=== PATIENT | female | born 1970 | race Caucasian/White ===

== ENCOUNTER → 2016-10-25 | Outpatient (CLI) | payer OTHER | LOC: RAD 14:39 | DX: M19.90 Unspecified osteoarthritis, unspecified site (principal) ==

== ENCOUNTER → 2016-10-26 | Outpatient (CLI) | payer OTHER | LOC: RAD 08:14 | DX: M25.561 Pain in right knee (principal); S83.241A Other tear of medial meniscus, current injury, right knee, initial encounter; M25.461 Effusion, right knee; X58.XXXA Exposure to other specified factors, initial encounter ==

== ENCOUNTER → 2017-01-13 | Outpatient (CLI) | payer OTHER | LOC: LAB 11:41 | DX: I10 Essential (primary) hypertension (principal) ==

== ENCOUNTER → 2017-01-23 | Outpatient (CLI) | payer OTHER | LOC: LAB 16:10 | DX: I10 Essential (primary) hypertension (principal); R73.9 Hyperglycemia, unspecified ==

== ENCOUNTER → 2018-03-06 | Outpatient (CLI) | payer OTHER ==
[2018-03-06 08:47] LABS: BASO # 0.1 (0.02-0.10); EOS # 0.3 (0.04-0.40); EOS % 1.9 % (1.0-5.0); HEMATOCRIT 45.2 % (37.0-47.0); HEMOGLOBIN 15.1 g/dL (12.5-16.0); LYMPH# 3.3 (1.50-4.00); MEAN CELL VOLUME 94 fl (78-100); MEAN CORPUSCULAR HEMOGLOBIN 31 pg (27-31); MEAN CORPUSCULAR HGB CONC 33 g/dL (33-37); MEAN PLATELET VOLUME 9.4 fl (7.4-10.4); MONO # 1.3 (0.20-0.80); PLATELET COUNT 318 K/mm3 (130-400); RED BLOOD COUNT 4.82 M/mm3 (4.10-5.30); RED CELL DISTRIBUTION WIDTH 13.8 % (11.5-14.5); WHITE BLOOD COUNT 15.9 K/mm3 (4.8-10.8)
[2018-03-06 08:59] LABS: ALBUMIN 4.2 g/dL (3.5-5.0); BUN/CREATININE RATIO 19.6 (6.0-26.0); CALCIUM 9.3 mg/dL (8.4-10.2); POTASSIUM 3.9 mmol/L (3.6-5.0); TOTAL BILIRUBIN 0.3 mg/dL (0.2-1.3); TOTAL PROTEIN 7.8 g/dL (6.3-8.2)
[2018-03-06 09:06] LABS: NEU # 10.9 (1.40-6.50)
== END ==
LOC: LAB 08:29
PROVIDERS: Family Medicine
DX: I10 Essential (primary) hypertension (principal); D49.0 Neoplasm of unspecified behavior of digestive system; R00.2 Palpitations; L82.1 Other seborrheic keratosis; R23.2 Flushing; M25.561 Pain in right knee; F41.1 Generalized anxiety disorder; R73.01 Impaired fasting glucose

== ENCOUNTER → 2018-03-15 | Outpatient (CLI) | payer OTHER | LOC: LAB 14:38 | DX: D72.829 Elevated white blood cell count, unspecified (principal) ==

== ENCOUNTER → 2018-04-17 | Outpatient (CLI) | payer OTHER | LOC: PT 11:11 → EDSTATUS 11:30 → PT 14:52 | DX: Z01.818 Encounter for other preprocedural examination (principal) ==

== ENCOUNTER → 2018-05-01 | Outpatient (CLI) | payer OTHER ==
[~2018-05-01] VITALS: Ht 172.7 cm; Wt 84.5 kg
[~2018-05-01] MED LIST: HYDROCHLOROTHIA50 M1 PO; LISINOPRIL20 MG PO; PAROXETINE HYDR40 MG PO
[2018-05-01 11:53] LABS: BASO # 0.1 (0.02-0.10); EOS # 0.4 (0.04-0.40); EOS % 2.6 % (1.0-5.0); HEMOGLOBIN 14.5 g/dL (12.5-16.0); LYMPH# 3.1 (1.50-4.00); MEAN CELL VOLUME 95 fl (78-100); MEAN CORPUSCULAR HEMOGLOBIN 31 pg (27-31); MEAN CORPUSCULAR HGB CONC 33 g/dL (33-37); MEAN PLATELET VOLUME 9.4 fl (7.4-10.4); MONO # 0.9 (0.20-0.80); PLATELET COUNT 303 K/mm3 (130-400); RED BLOOD COUNT 4.64 M/mm3 (4.10-5.30); RED CELL DISTRIBUTION WIDTH 13.5 % (11.5-14.5); WHITE BLOOD COUNT 13.6 K/mm3 (4.8-10.8)
[2018-05-01 12:10] LABS: ALBUMIN 3.7 g/dL (3.5-5.0); BUN/CREATININE RATIO 25.5 (6.0-26.0); CALCIUM 8.7 mg/dL (8.4-10.2); TOTAL BILIRUBIN 0.4 mg/dL (0.2-1.3)
[2018-05-01 12:20] LABS: PROTHROMBIN TIME 9.1 SECONDS (9.0-12.0); URINE APPEARANCE HAZY; URINE COLOR YELLOW
[2018-05-01 12:21] LABS: URINE BILIRUBIN NEGATIVE (NEGATIVE); URINE BLOOD TRACE (NEGATIVE); URINE GLUCOSE NEGATIVE (NEGATIVE); URINE KETONE NEGATIVE (NEGATIVE); URINE LEUKOCYTE ESTERASE NEGATIVE (NEGATIVE); URINE NITRATE NEGATIVE (NEGATIVE); URINE PROTEIN(semi-quant) TRACE mg/dL (NEGATIVE); URINE UROBILINOGEN NORMAL (NORMAL)
[2018-05-01 12:27] LABS: NEU # 9.1 (1.40-6.50)
[2018-05-01 12:38] VITALS: BP 142/74
[2018-05-01 12:43] LABS: POTASSIUM 3.9 mmol/L (3.6-5.0)
== END ==
LOC: AMSURD 11:31
PROVIDERS: Family Medicine
DX: Z01.818 Encounter for other preprocedural examination (principal); M17.11 Unilateral primary osteoarthritis, right knee; R73.01 Impaired fasting glucose; I10 Essential (primary) hypertension; D72.829 Elevated white blood cell count, unspecified; F41.1 Generalized anxiety disorder

== ENCOUNTER 2018-06-27 13:00 | Outpatient (RCR) | payer OTHER ==
[2018-05-01 12:38] VITALS: BP 142/74
== END 2018-06-27 13:30 | disposition home or self-care (01) ==
LOC: PT 13:00
DX: Z47.1 Aftercare following joint replacement surgery (principal); Z96.651 Presence of right artificial knee joint

== ENCOUNTER → 2019-04-16 | Outpatient (CLI) | payer OTHER ==
[2018-05-01 12:38] VITALS: BP 142/74
[2019-04-16 19:50] LABS: EOS # 0.3 (0.04-0.40); EOS % 1.8 % (1.0-5.0); HEMATOCRIT 46.2 % (37.0-47.0); HEMOGLOBIN 15.2 g/dL (12.5-16.0); LYMPH# 3.6 (1.50-4.00); MEAN CELL VOLUME 97 fl (78-100); MEAN CORPUSCULAR HEMOGLOBIN 32 pg (27-31); MEAN CORPUSCULAR HGB CONC 33 g/dL (33-37); MEAN PLATELET VOLUME 10.5 fl (7.4-10.4); MONO # 1.2 (0.20-0.80); PLATELET COUNT 333 K/mm3 (130-400); RED BLOOD COUNT 4.77 M/mm3 (4.10-5.30); RED CELL DISTRIBUTION WIDTH 13.8 % (11.5-14.5); WHITE BLOOD COUNT 14.8 K/mm3 (4.8-10.8)
[2019-04-16 20:03] LABS: NEU # 9.6 (1.40-6.50)
[2019-04-16 23:44] LABS: ALBUMIN 4.1 g/dL (3.5-5.0); POTASSIUM 4.1 mmol/L (3.5-5.1)
[2019-04-16 23:45] LABS: CALCIUM 9.7 mg/dL (8.3-10.5)
[2019-04-16 23:46] LABS: TOTAL PROTEIN 7.1 g/dL (6.4-8.3)
[2019-04-16 23:48] LABS: TOTAL BILIRUBIN 0.4 mg/dL (0.2-1.2)
== END ==
LOC: LAB 16:34
PROVIDERS: Family Medicine
DX: F41.1 Generalized anxiety disorder (principal); I10 Essential (primary) hypertension; E78.5 Hyperlipidemia, unspecified

== ENCOUNTER → 2019-04-24 | Outpatient (CLI) | payer OTHER ==
[2018-05-01 12:38] VITALS: BP 142/74
== END ==
LOC: MAMMO 10:24
DX: Z12.31 Encounter for screening mammogram for malignant neoplasm of breast (principal)

== ENCOUNTER → 2020-03-16 | Outpatient (CLI) | payer BC ==
[2018-05-01 12:38] VITALS: BP 142/74
[2020-03-16 16:06] LABS: EOS # 0.3 (0.04-0.40); EOS % 2.3 % (1.0-5.0); HEMOGLOBIN 15.5 g/dL (12.5-16.0); LYMPH# 2.9 (1.50-4.00); MEAN CELL VOLUME 96 fl (78-100); MEAN CORPUSCULAR HEMOGLOBIN 32 pg (27-31); MEAN CORPUSCULAR HGB CONC 33 g/dL (33-37); MEAN PLATELET VOLUME 9.2 fl (7.4-10.4); PLATELET COUNT 326 K/mm3 (130-400); RED BLOOD COUNT 4.91 M/mm3 (4.10-5.30); RED CELL DISTRIBUTION WIDTH 13.1 % (11.5-14.5); WHITE BLOOD COUNT 12.4 K/mm3 (4.8-10.8)
[2020-03-16 16:19] LABS: POTASSIUM 3.9 mmol/L (3.5-5.1)
[2020-03-16 16:23] LABS: TOTAL BILIRUBIN 0.2 mg/dL (0.2-1.2)
== END ==
LOC: LAB 15:33
PROVIDERS: Family Medicine
DX: I10 Essential (primary) hypertension (principal); F41.1 Generalized anxiety disorder; D49.0 Neoplasm of unspecified behavior of digestive system; L82.1 Other seborrheic keratosis; M25.561 Pain in right knee; R23.2 Flushing; R00.2 Palpitations; R73.9 Hyperglycemia, unspecified

== ENCOUNTER → 2020-04-14 | Outpatient (CLI) | payer BC ==
[2018-05-01 12:38] VITALS: BP 142/74
== END ==
LOC: MAMMO 14:30
DX: Z12.31 Encounter for screening mammogram for malignant neoplasm of breast (principal)

== ENCOUNTER → 2021-02-05 | Outpatient (CLI) | payer BC ==
[2018-05-01 12:38] VITALS: BP 142/74
== END ==
LOC: RAD 16:44
DX: M79.89 Other specified soft tissue disorders (principal); M79.672 Pain in left foot

== ENCOUNTER → 2021-02-10 | Outpatient (CLI) | payer BC ==
[2018-05-01 12:38] VITALS: BP 142/74
== END ==
LOC: RAD 13:10
DX: R60.9 Edema, unspecified (principal)

== ENCOUNTER → 2022-05-03 | Outpatient (CLI) | payer BC | LOC: RAD 15:10 | DX: M47.815 Spondylosis without myelopathy or radiculopathy, thoracolumbar region (principal); I10 Essential (primary) hypertension ==

== ENCOUNTER → 2024-01-23 | Outpatient (CLI) | payer OTHER ==
[2024-01-23 16:13] LABS: BASO # 0.03 K/mm3 (0.02-0.10); EOS # 0.15 K/mm3 (0.04-0.40); EOS % 1.2 % (1.0-5.0); HEMATOCRIT 44.7 % (37.0-47.0); HEMOGLOBIN 15.3 g/dL (12.5-16.0); LYMPH# 3.59 K/mm3 (1.50-4.00); MEAN CELL VOLUME 93 fl (78-100); MEAN CORPUSCULAR HEMOGLOBIN 32 pg (27-31); MEAN CORPUSCULAR HGB CONC 34 g/dL (33-37); MONO # 0.92 K/mm3 (0.20-0.80); NEU # 8.02 K/mm3 (1.40-6.50); PLATELET COUNT 305 K/mm3 (130-400); RED CELL DISTRIBUTION WIDTH 12.2 % (11.5-14.5); WHITE BLOOD COUNT 12.8 K/mm3 (4.8-10.8)
[2024-01-23 16:18] LABS: ALBUMIN 4.4 g/dL (3.5-5.0)
[2024-01-23 16:19] LABS: CALCIUM 9.9 mg/dL (8.3-10.5)
[2024-01-23 16:21] LABS: TOTAL PROTEIN 7.7 g/dL (6.4-8.3)
[2024-01-23 16:23] LABS: TOTAL BILIRUBIN 0.2 mg/dL (0.2-1.2)
== END ==
LOC: LAB 15:45
PROVIDERS: Nurse Practitioner Primary Care
DX: E11.9 Type 2 diabetes mellitus without complications (principal); I10 Essential (primary) hypertension

== ENCOUNTER → 2024-01-23 | Outpatient (CLI) | payer OTHER ==
[2024-01-23 23:54] LABS: HEPATITIS B CORE AB TOTAL Negative (Negative); HEPATITIS B SURFACE ANTIGEN Negative (Negative)
[2024-01-23 23:56] LABS: HEPATITIS C VIRUS ANTIBODY Negative (Negative)
[2024-01-24 16:57] LABS: TB GOLD INTERPRETATION.TB GOLD Negative (Negative)
== END ==
LOC: LAB 15:53
PROVIDERS: Physician Assistant
DX: Z51.81 Encounter for therapeutic drug level monitoring (principal); Z79.899 Other long term (current) drug therapy